=== PATIENT | female | born 1975 | race African-American/Black ===

== ENCOUNTER 2017-02-20 04:42 | Emergency (ER) | payer MEDICARE ==
[2017-02-20] MEDS ORDERED: Ketorolac Tromethamine 30 MG/ML VIAL ONE (04:58)
[2017-02-20] MEDS ORDERED: Ondansetron HCl/PF 4 MG/2 ML Vial ONE (04:59)
[2017-02-20] MEDS ORDERED: Sodium Chloride 0.9% 1,000 ML ONE (04:59)
[2017-02-20 05:25] LABS: #Basophils 0.1 thou/uL (0.0-0.2); #Eosinphils 0.1 thou/uL (0.0-0.7); #Lymphocytes 3.4 thou/uL (1.20-3.40); #Monocytes 0.6 thou/uL (0.11-0.59); #Neutrophils 5.4 thou/uL (1.40-6.50); %Basophils 0.8 % (0.0-1.0); %Lymphocytes 35.7 % (21.0-51.0); %Monocytes 6.3 % (0.0-10.0); %Neutrophils 56.3 % (42.0-75.0); Hemoglobin 12.7 g/dL (12.0-16.0); Mean Corpuscular HGB CONC 33.8 g/dL (32.0-36.0); Mean Corpuscular Hemoglobin 32.5 pg (27.0-31.0); Mean Corpuscular Volume 96.1 fl (81.0-99.0); Mean Platelet Volume 7.8 fL (7.4-10.4); Platelet Count 249 thou/uL (130-400); RBC Distribution Width 12.1 % (11.5-14.5); White Blood Cell (WBC) Count 9.6 thou/uL (4.8-10.8)
[2017-02-20 05:25] LABS: Bilirubin Negative (Negative); Blood, Urine Large (Negative); Clarity Cloudy (Clear); Glucose, Urine (Dipstick) Negative (Negative); Leukocyte Trace (Negative); Nitrite Negative (Negative); Protein, Urine (Dipstick) 30 mg/dL (Neg-Trace); Urobilinogen 0.2 mg/dL (0.2-1.0)
[2017-02-20 05:27] LABS: RBC/HPF 21-50 HPF (0-3)
[2017-02-20 05:28] LABS: Bacteria/HPF Rare-Few HPF (None Seen); Crystals/HPF 1+ CA OXALATE HPF (Negative)
[2017-02-20 05:35] LABS: Anion Gap 19 mmol/L (10-20); BUN (Urea Nitrogen) 21 mg/dL (7.0-18.7); Calc. Creatinine Clearance 0 mL/min (70-130); Calcium 7.1 mg/dL (7.8-10.44); Carbon Dioxide 22 mmol/L (22-29); Chloride 105 mmol/L (98-107); Estimated GFR-MDRD 44; Glucose 108 mg/dL (70-105); Potassium 3.5 mmol/L (3.5-5.1); Sodium 142 mmol/L (136-145)
--- NOTE | 2017-02-20 09:28 | CT ---
PRELIMINARY REPORT/[facility]/EMERGENCY AFTER HOURS PROCEDURE: EXAM: CT Abdomen and Pelvis Without Intravenous Contrast CLINICAL HISTORY: 41 years old, female; Pain; Abdominal pain; Flank; Left; Prior surgery; Surgery date: 6+ months; Debra coleen type: Hysterectomy \T\ cholecystectomy; Patient HX: 41 year old female presents with acute onse t of pain in left back and flank that awoke her from sleep. Nausea, vomiting x 2 TECHNIQUE: Axial computed tomography images of the abdomen and pelvis without intravenous contrast. Coronal and sagittal reformatted images were created and reviewed. EXAM DATE/TIME: 02/20/2017 5:22 AM COMPARISON: No relevant prior studies available. FINDINGS: Lower thorax: -Small hiatal hernia ABDOMEN: Liver: Unremarkable. Gallbladder and bile ducts: Surgical clips are present in the region of the gallbladder fossa. Pancreas: Unremarkable. Spleen: normal Adrenals: Unremarkable. No mass. Kidneys and ureters: Dilatation of the left renal pelvis and proximal ureter secondary to a calcific ation within the proximal aspect of the left ureter. This measures approximately 3 mm. 6 mm calcific ation mid pole right kidney Stomach and bowel: Unremarkable. No obstruction. Appendix: -The appendix is normal. PELVIS: Bladder: Unremarkable. No stones. Reproductive: normal. No mass ABDOMEN and PELVIS: Intraperitoneal space: Unremarkable. No free air. No significant fluid collection. Bones/joints: No acute fracture. No dislocation. Soft tissues: -Periumbilical ventral hernia with fat extending into the hernia sac/subcutaneous soft tissues. Vasculature: Unremarkable. No abdominal aortic aneurysm. Lymph nodes: -Numerous mesenteric lymph nodes. Correlate regarding the possibility of an enteritis a nd/or adenitis. Other findings: No acute inflammatory process. No obstruction. IMPRESSION: 1. Dilatation of the left renal pelvis and proximal ureter secondary to a calcification within the p roximal aspect of the left ureter. This measures approximately 3 mm. 2. -Numerous mesenteric lymph nodes. Correlate regarding the possibility of an enteritis and/or tigist itis. 3. -The appendix is normal. 4. No acute inflammatory process. No obstruction. Thank you for allowing us to participate in the care of your patient. Dictated and Authenticated by: Gildardo Barrera MD 02/20/2017 5:55 AM Central Time ([place] \T\ [place]) FINAL REPORT CT ABDOMEN AND PELVIS WITHOUT CONTRAST: I agree with the preliminary report given by Dr. Gildardo Barrera of [facility]. POS: OFF
== END 2017-02-20 05:50 | disposition home or self-care (01) ==
LOC: NAV ERS 04:42
DX: N20.2 Calculus of kidney with calculus of ureter (principal); E03.9 Hypothyroidism, unspecified; I10 Essential (primary) hypertension; F17.210 Nicotine dependence, cigarettes, uncomplicated; Z79.891 Long term (current) use of opiate analgesic; Z79.899 Other long term (current) drug therapy
CPT/HCPCS: 36415; 74176; 80048; 81003; 81015; 85025; 87086; 96361; 96374; 96375; J1885; J2270; J2405; J7050

== ENCOUNTER 2017-03-12 16:01 | Emergency (ER) | payer MEDICARE | END 2017-03-12 17:15 | disposition home or self-care (01) | LOC: NAV ERS 16:01 | DX: G56.03 Carpal tunnel syndrome, bilateral upper limbs (principal); E03.9 Hypothyroidism, unspecified; I10 Essential (primary) hypertension; E66.9 Obesity, unspecified; F17.210 Nicotine dependence, cigarettes, uncomplicated; Z79.899 Other long term (current) drug therapy | CPT/HCPCS: 99283 ==

== ENCOUNTER 2017-05-26 19:15 | Emergency (ER) | payer MEDICARE ==
[~2017-05-26 19:15] MED LIST: Sodium Chloride 0.9% 1,000 ML BAG ONE
[2017-05-26 20:09] LABS: #Basophils 0.1 thou/uL (0.0-0.2); #Eosinphils 0.1 thou/uL (0.0-0.7); #Lymphocytes 3.2 thou/uL (1.20-3.40); #Monocytes 0.4 thou/uL (0.11-0.59); #Neutrophils 4.8 thou/uL (1.40-6.50); %Eosinophils 1.7 % (0.0-10.0); %Lymphocytes 37.1 % (21.0-51.0); %Monocytes 4.9 % (0.0-10.0); %Neutrophils 55.2 % (42.0-75.0); Hemoglobin 12.9 g/dL (12.0-16.0); Mean Corpuscular HGB CONC 31.8 g/dL (32.0-36.0); Mean Corpuscular Hemoglobin 31.3 pg (27.0-31.0); Mean Corpuscular Volume 98.3 fl (81.0-99.0); Mean Platelet Volume 7.6 fL (7.4-10.4); Platelet Count 194 thou/uL (130-400); RBC Distribution Width 12.2 % (11.5-14.5); Red Blood Cell (RBC) Count 4.13 mill/uL (4.20-5.40); White Blood Cell (WBC) Count 8.6 thou/uL (4.8-10.8)
[2017-05-26 20:20] LABS: ALT (SGPT) 11 U/L (8-55); AST (SGOT) 17 U/L (5-34); Albumin 3.2 g/dL (3.5-5.0); Alkaline Phosphatase 36 U/L (40-150); Anion Gap 18 mmol/L (10-20); BUN (Urea Nitrogen) 14 mg/dL (7.0-18.7); Bilirubin, Total 0.3 mg/dL (0.2-1.2); Calc. Creatinine Clearance 0 mL/min (70-130); Carbon Dioxide 21 mmol/L (22-29); Chloride 109 mmol/L (98-107); Estimated GFR-MDRD 63; Globulin 2.5 g/dL (2.4-3.5); Glucose 109 mg/dL (70-105); Magnesium 1.6 mg/dL (1.6-2.6); Potassium 3.9 mmol/L (3.5-5.1); Protein, Total 5.7 g/dL (6.0-8.3); Sodium 144 mmol/L (136-145)
[2017-05-26 20:22] LABS: Calcium 5.4 mg/dL (7.8-10.44)
[2017-05-26] MEDS ORDERED: Calcium Gluc 4.6 MEQ/10 ML (100 MG/ML) ONE ×2 (20:42→20:48)
[2017-05-26] MEDS ORDERED: Sodium Chloride 0.9% 0 ML ONE (20:48)
[2017-05-26] MEDS ORDERED: Sodium Chloride 0.9% 100 ML ONE (20:49)
== END 2017-05-26 20:28 | disposition home or self-care (01) ==
LOC: NAV ERS 19:15
DX: E83.51 Hypocalcemia (principal); E03.9 Hypothyroidism, unspecified; I10 Essential (primary) hypertension; F17.210 Nicotine dependence, cigarettes, uncomplicated; Z79.891 Long term (current) use of opiate analgesic; Z79.899 Other long term (current) drug therapy
CPT/HCPCS: 80053; 83735; 84100; 85025; 96374; J7050

== ENCOUNTER 2017-10-20 02:48 | Emergency (ER) | payer MEDICARE, SELFPAY ==
[2017-10-20 03:02] LABS: Bilirubin Negative (Negative); Blood, Urine Large (Negative); Clarity Cloudy (Clear); Glucose, Urine (Dipstick) Negative (Negative); Leukocyte Large (Negative); Nitrite Negative (Negative); Protein, Urine (Dipstick) 100 mg/dL (Neg-Trace); Urobilinogen 0.2 mg/dL (0.2-1.0)
[2017-10-20 03:03] LABS: Specific Gravity, Urine 1.018 (1.002-1.036)
[2017-10-20 03:05] LABS: WBC/HPF 21-50 HPF (0-3)
[2017-10-20 03:06] LABS: Bacteria/HPF 1+ HPF (None Seen); Squamous Epithelial 0-3 HPF (0-3)
== END 2017-10-20 03:30 | disposition home or self-care (01) ==
LOC: NAV ERS 02:48
DX: N39.0 Urinary tract infection, site not specified (principal); E03.9 Hypothyroidism, unspecified; I10 Essential (primary) hypertension; E66.9 Obesity, unspecified; F17.210 Nicotine dependence, cigarettes, uncomplicated; Z79.899 Other long term (current) drug therapy
CPT/HCPCS: 81003; 81015; 99283

== ENCOUNTER 2017-12-09 08:47 | Emergency (ER) | payer MEDICARE ==
[2017-12-09] MEDS ORDERED: Iopamidol 370 76% 100 ML VIAL ONE (09:00)
[2017-12-09] MEDS ORDERED: Ondansetron HCl/PF 4 MG/2 ML Vial ONE (09:38)
[2017-12-09] MEDS ORDERED: Sodium Chloride 0.9% 1,000 ML ONE (09:38)
[2017-12-09] MEDS ORDERED: Morphine 10 MG/ML VIAL ONE (09:48)
[2017-12-09 09:53] LABS: BHCG - Serum Negative (NEGATIVE); Pregs Control Bar Appear? YES (CONTROL BAR)
[2017-12-09 09:54] LABS: #Basophils 0.1 thou/uL (0.0-0.2); #Lymphocytes 1.8 thou/uL (1.20-3.40); #Monocytes 0.5 thou/uL (0.11-0.59); #Neutrophils 5.6 thou/uL (1.40-6.50); %Eosinophils 0.5 % (0.0-10.0); %Lymphocytes 22.5 % (21.0-51.0); %Monocytes 6.1 % (0.0-10.0); %Neutrophils 69.9 % (42.0-75.0); Hemoglobin 12.6 g/dL (12.0-16.0); Mean Corpuscular HGB CONC 33.5 g/dL (32.0-36.0); Mean Corpuscular Hemoglobin 30.6 pg (27.0-31.0); Mean Corpuscular Volume 91.4 fl (81.0-99.0); Mean Platelet Volume 8.6 fL (7.4-10.4); Platelet Count 231 thou/uL (130-400); RBC Distribution Width 11.9 % (11.5-14.5); Red Blood Cell (RBC) Count 4.13 mill/uL (4.20-5.40)
[2017-12-09 10:01] LABS: ALT (SGPT) 18 U/L (8-55); AST (SGOT) 19 U/L (5-34); Albumin 4.2 g/dL (3.5-5.0); Alkaline Phosphatase 63 U/L (40-150); Anion Gap 19 mmol/L (10-20); BUN (Urea Nitrogen) 19 mg/dL (7.0-18.7); Bilirubin, Total 0.4 mg/dL (0.2-1.2); Calc. Creatinine Clearance 0 mL/min (70-130); Carbon Dioxide 23 mmol/L (22-29); Chloride 102 mmol/L (98-107); Estimated GFR-MDRD 61; Glucose 112 mg/dL (70-105); Lipase 25 U/L (8-78); Potassium 4.2 mmol/L (3.5-5.1); Protein, Total 8.2 g/dL (6.0-8.3); Sodium 140 mmol/L (136-145)
[2017-12-09 10:02] LABS: CKMB 0.4 ng/mL (0-6.6); Troponin I Less than 0.010 ng/mL (< 0.028)
[2017-12-09 11:00] LABS: Bilirubin Negative (Negative); Blood, Urine Negative (Negative); Clarity Cloudy (Clear); Glucose, Urine (Dipstick) Negative (Negative); Leukocyte Negative (Negative); Nitrite Negative (Negative); Protein, Urine (Dipstick) Negative (Neg-Trace); Specific Gravity, Urine 1.015 (1.005-1.030); Urobilinogen 0.2 mg/dL (0.2-1.0)
--- NOTE | 2017-12-09 11:01 | RAD ---
TWO VIEWS OF THE CHEST: HISTORY: Epigastric and chest pain. COMPARISON: None. FINDINGS: Two views of the chest show normal sized cardiomediastinal silhouette. There is no evidence of consol idation, mass, or pleural effusion. The bones are unremarkable. IMPRESSION: No evidence of acute cardiopulmonary disease. POS: [facility]
--- NOTE | 2017-12-09 11:08 | CT ---
CT ABDOMEN AND PELVIS WITH IV CONTRAST: 12/09/2017 HISTORY: Epigastric abdominal pain. History of prior hysterectomy and cholecystectomy. COMPARISON: Noncontrast CT abdomen and pelvis from 02/20/2017. FINDINGS: There has been interval resolution of the left hydronephrosis and hydroureter, and the previously not ed left ureteral calculus is not visualized, likely related to interval passage of the calculus. A p unctate, nonobstructing right renal calculus is again present. Post cholecystectomy changes are noted. There is also evidence of a prior hysterectomy. Mild dependent bibasilar atelectasis is present. The liver, spleen, pancreas, bilateral adrenal glands, left kidney, and urinary bladder demonstrate a normal CT appearance. The abdominal aorta is normal in appearance. Colonic diverticulosis is again present. The appendix is visualized and is normal in caliber. A small, fat-containing umbilical hernia is noted. IMPRESSION: 1. Resolution of left hydronephrosis and left ureteral calculus. 2. Nonobstructing right renal calculus. 3. Hysterectomy and cholecystectomy. 4. Tiny pericardial effusion, also present on prior exam. 5. There is an increased number of mesenteric lymph nodes on the prior exam, which are not appreciat ed on the current study. 6. Small fat-containing umbilical hernia. 7. Colonic diverticulosis. POS: [facility]
[2017-12-09] MEDS ORDERED: Pantoprazole 40 MG VIAL ONE (11:25)
== END 2017-12-09 11:54 | disposition home or self-care (01) ==
LOC: NAV ERS 08:47
DX: R10.13 Epigastric pain (principal); E03.9 Hypothyroidism, unspecified; I10 Essential (primary) hypertension; E66.9 Obesity, unspecified; F17.210 Nicotine dependence, cigarettes, uncomplicated; Z79.899 Other long term (current) drug therapy
CPT/HCPCS: 36415; 71046; 74177; 80053; 81003; 82553; 83690; 84484; 84703; 85025; 85379; 93005; 96361; 96374; 96375; C9113; J2270; J2405; J7050

== ENCOUNTER 2018-09-01 14:36 | Emergency (ER) | payer MEDICARE | END 2018-09-01 15:24 | disposition home or self-care (01) | LOC: NAV ERS 14:36 | DX: K02.9 Dental caries, unspecified (principal); E03.9 Hypothyroidism, unspecified; I10 Essential (primary) hypertension; E66.9 Obesity, unspecified; F17.210 Nicotine dependence, cigarettes, uncomplicated; Z79.899 Other long term (current) drug therapy | CPT/HCPCS: 99282 ==

== ENCOUNTER 2019-11-17 20:38 | Emergency (ER) | payer MEDICARE ==
[2019-11-17] MEDS ORDERED: Lidocaine 1% (PF) 30 ML VIAL ONE (21:25)
[2019-11-17] MEDS ORDERED: cefTRIAXone\\ROCEPHIN 1 GM VIAL ONE (21:25)
[2019-11-17] MEDS ORDERED: Naproxen 500 MG TAB ONE (21:45)
== END 2019-11-17 22:00 | disposition home or self-care (01) ==
LOC: NAV ERS 20:38
DX: K11.20 Sialoadenitis, unspecified (principal); E03.9 Hypothyroidism, unspecified; I10 Essential (primary) hypertension; E66.9 Obesity, unspecified; F32.9 Major depressive disorder, single episode, unspecified; F17.210 Nicotine dependence, cigarettes, uncomplicated; Z79.899 Other long term (current) drug therapy
CPT/HCPCS: 96372; 99283; J0696; J2001

== ENCOUNTER 2020-03-22 14:13 | Emergency (ER) | payer MEDICARE, SELFPAY | END 2020-03-22 14:38 | disposition home or self-care (01) | LOC: NAV ERS 14:13 | DX: K04.7 Periapical abscess without sinus (principal); E78.5 Hyperlipidemia, unspecified; I10 Essential (primary) hypertension; F17.210 Nicotine dependence, cigarettes, uncomplicated; E58 Dietary calcium deficiency; Z79.899 Other long term (current) drug therapy | CPT/HCPCS: 99283 ==